=== PATIENT | female | born 1935 | race Caucasian/White ===

== ENCOUNTER 2017-12-26 19:47 | Inpatient (IN) | payer MEDICARE, MEDICAID ==
[~2017-12-26] VITALS: Ht 165.1 cm; Wt 41.4 kg
--- NOTE | 2017-12-26 20:29 | PHYS DOC ---
Past History Past Medical History: Anxiety, Arthritis, COPD, Hypertension Additional Past Medical Histor: bladder incontinence Past Surgical History: Hip Replacement (left repair) Additional Past Surgical Histo: hernia x 3 Smoking: Cigarettes, Greater than 1 pack/day Alcohol Use: None Drug Use: None Adult General Chief Complaint Chief Complaint: CHEST PAIN HPI HPI Patient is an 82-year-old female who presents to the emergency department complaining of chest pain. She states that she moved in with her sister yesterday and in the process some of her medication was lost, which included Xanax and Soma. She states that she did not want to move in with her sister. Patient states that this chest pain started yesterday. She rates the pain as 4/ 10. She denies anything that improves/worsens the pain. She says that earlier this week she fell and that her left hip is now sore. Reports history of prior fracture requiring repair. She denies hitting her head and denies any loss of consciousness. Denies leg swelling or calf tenderness. Reports cardiac risk factors of HTN, smoking, and family history. Review of Systems Review of Systems Constitutional: Denies fever or chills [] Eyes: Denies change in visual acuity, redness, or eye pain [] HENT: Denies nasal congestion or sore throat [] Respiratory: Denies cough or shortness of breath [] Cardiovascular: Complains of chest pain and denies palpitations [] GI: Denies abdominal pain, nausea, vomiting, or diarrhea [] Musculoskeletal: Complains of left-sided hip pain. Denies back pain or joint pain [] Neurologic: Denies headache, focal weakness or sensory changes [] Complete systems were reviewed and found to be within normal limits, except as documented in this note. Current Medications Current Medications Current Medications Medications (Trade) Dose Ordered Sig/[facility] Start Time Stop Time Status Last Admin Dose Admin Aspirin (Children'S Aspirin) 324 mg 1X ONCE 12/26/17 20:15 12/26/17 20:16 UNV Physical Exam Physical Exam Constitutional: Well developed, well nourished, no acute distress, non-toxic appearance. [] HENT: Normocephalic, atraumatic, oropharynx moist Eyes: PERRL, EOMI. [] Neck: Normal range of motion, no tenderness, supple, no stridor. [] Cardiovascular: Heart rate regular rhythm, no murmur [] Lungs & Thorax: Bilateral breath sounds clear to auscultation [] Abdomen: Soft, no tenderness, Skin: Warm, dry, no rash Extremities: No tenderness, no cyanosis, ROM intact, No deformity, Pelvis stable and nontender Neurologic: Alert and oriented X 3, normal motor function, normal sensory function, no focal deficits noted. [] Psychologic: Affect normal, judgement normal, mood normal. [] EKG EKG NSR at 74 bpm, No ST elevation, PVC noted, Taken at 1959 at 12/26/17 Radiology/Procedures Radiology/Procedures CXR 2 view: Preliminary Interpretation by ED physician: No acute process, hyperexpansion of lungs Left hip XR: Preliminary Interpretation by ED physician: No acute process. Femoral kyaw with hip retention screw noted, no fracture/dislocation appreciated. Course & Med Decision Making Course & Med Decision Making Pertinent Labs and Imaging studies reviewed. (See chart for details) Patient is an 82-year-old female with significant cardiac risk factors presents to the emergency department complaining of chest pain. Aspirin was given. Labs obtained and posted to chart. Initial troponin within normal limits. Chest x- ray without acute process. Patient also received x-ray of left hip without acute fracture or dislocation. Patient requiring admission for further evaluation and treatment. Discussed with Dr. Jha (hospitalist) who is in agreement with admission. Discussed findings and plan with patient and family, who acknowledge understanding and agreement. Dragon Disclaimer Dragon Disclaimer This electronic medical record was generated, in whole or in part, using a voice recognition dictation system. Departure Departure: Impression: Primary Impression: Chest pain Disposition: ADMITTED INPATIENT (telemetry) Admitting Physician: Orion Jha Condition: STABLE Problem Qualifiers Primary Impression: Chest pain Chest pain type: unspecified Qualified Codes: R07.9 - Chest pain, unspecified DONOVAN ALVAREZ DO Dec 26, 2017 20:29
[2017-12-26] MEDS ORDERED: ASPIRIN 81 MG TAB.CHEW PO ONE (20:30)
[2017-12-26] MEDS ORDERED: ALBU8.5H8 INH (20:55)
[2017-12-26] MEDS ORDERED: ALPR0.5T PO (20:55)
[2017-12-26] MEDS ORDERED: TAMS0.4C97 PO (20:55)
[2017-12-26] MEDS ORDERED: CARI350T PO (20:55)
[2017-12-26] MEDS ORDERED: TRAZ-85 PO (20:55)
[2017-12-26 20:59] LABS: BASO # 0.1 x10^3/uL (0.0-0.2); BASO % 1 % (0-3); EOS # 0.1 x10^3/uL (0.0-0.7); EOS % 2 % (0-3); LYMPH # 1.6 x10^3/uL (1.0-4.8); LYMPH % 25 % (24-48); MEAN CORPUSCULAR HEMOGLOBIN 30 pg (25-35); MEAN CORPUSCULAR HGB CONC 34 g/dL (31-37); MEAN CORPUSCULAR VOLUME 89 fL (79-100); MONO # 0.5 x10^3/uL (0.0-1.1); MONO % 8 % (0-9); NEUT # 4.2 x10^3uL (1.8-7.7); NEUT % 64 % (31-73); PLATELET COUNT 287 x10^3/uL (140-400); RED BLOOD COUNT 4.29 x10^6/uL (3.50-5.40); RED CELL DISTRIBUTION WIDTH 14.5 % (11.5-14.5); WHITE BLOOD COUNT 6.6 x10^3/uL (4.0-11.0)
[2017-12-26 21:30] LABS: BACTERIA,URINE 0 /HPF (0-FEW); BILIRUBIN,URINE NEG (NEG); CLARITY,URINE CLEAR; COLOR,URINE YELLOW; GLUCOSE,URINE NEG (NEG); NITRITE,URINE NEG (NEG); RBC,URINE OCC /HPF (0-2); SQUAMOUS EPITHELIAL CELL,UR MOD /LPF; UROBILINOGEN,URINE 0.2 mg/dL (0.2 mg/dL)
[2017-12-26 21:56] LABS: ALBUMIN 3.6 g/dL (3.4-5.0); ALBUMIN/GLOBULIN RATIO 1.3 (1.0-1.7); CALCIUM 8.7 mg/dL (8.5-10.1); CREATININE 0.9 mg/dL (0.6-1.0); GFR 59.8; MAGNESIUM 1.9 mg/dL (1.8-2.4); POTASSIUM 3.4 mmol/L (3.5-5.1); TOTAL BILIRUBIN 0.3 mg/dL (0.2-1.0); TOTAL PROTEIN 6.4 g/dL (6.4-8.2)
[2017-12-26] MEDS ORDERED: ONDANSETRON PF 4 MG/2 ML VIAL. IV PRN (22:15)
[2017-12-26 23:50] VITALS: BP 201/81
[2017-12-27 00:07] VITALS: BP 200/93
[2017-12-27] MEDS: METOPROLOL TART IMMED RELEASE 25 MG TABLET PO SCH ×2 (00:21→08:09)
[2017-12-27 03:11] VITALS: BP 169/69
[2017-12-27 05:47] VITALS: BP 164/79
--- NOTE | 2017-12-27 07:56 | RAD ---
Chest, PA and Lateral: Technique: PA and lateral views of the chest were obtained. History: Chest pain. Comparison: 03/23/2007. Findings: The heart and pulmonary vasculature appear within normal limits. Hyperinflated lungs likely changes of COPD.. The pleural margins are clear. Impression: 1. Hyperinflated lungs likely changes of COPD.. Electronically signed by: Duy Spence MD (12/27/2017 7:52 AM) [facility]
[2017-12-27] MEDS ORDERED: POTASSIUM CHLORIDE 20 MEQ TABLET.ER. PO ONE (08:00)
[2017-12-27 10:53] VITALS: BP 161/76
--- NOTE | 2017-12-27 11:12 | HP ---
ADMIT DATE: 12/26/2017 HISTORY OF PRESENT ILLNESS: The patient is an 82-year-old female patient who was brought yesterday to the Emergency Room by her sister complaining of chest pain. She apparently was evicted from a high rising building because she continues to smoke against the rules and her last day was 12/23/2017. According to her, she moved with her sister and in the process lost some of her medication, including Xanax and Soma. She apparently developed chest pain that is retrosternal, rated about 4/10 in severity. She denied any nausea or vomiting. Denied any diaphoresis, denied any shortness of breath or radiation to her left arm or left shoulder. She stated that she fell about earlier this week and her left hip is now sore. Apparently, she has had a history of fracture before that was treated surgically. She denied any previous heart attack or a stress test, although her sister later on came and said that she follows with the [facility] Cardiology team and see Dr. Vesna Pa and Dr. Edwards. She was extensively investigated in the Emergency Room. Her EKG showed that she was in sinus rhythm at a rate of 74 beats per minute with no ST segment elevation or depression. Chest x-ray showed inflated lungs without any infiltrate, pleural effusion, or pneumothorax. Her first set of cardiac enzyme showed troponin to be less than 0.017. She was admitted to do 2 more sets of cardiac enzymes, check her fasting lipid profile, and consult the Cardiology team. PAST MEDICAL HISTORY: Unremarkable. According to her, she sees and we attempting to get some more information from his office. She gets her medication from [facility]. PAST SURGICAL HISTORY: Significant for cataract extraction and three hernia repair. According to her sister, she has multiple bowel surgeries and she always has chronic constipation. ALLERGIES: She has no known drug allergies. MEDICATIONS: She is on albuterol sulfate for ProAir 2 puffs every 6 hours, Soma 350 mg daily, trazodone 50 mg at bedtime, and alprazolam 0.5 mg twice a day. She is also on Flomax 0.4 mg daily. FAMILY HISTORY: She has 3 brothers and 3 sisters, all younger. Her mother at age of 85 because of the CVA. Her father in his 80s, the cause of her is unknown to her. SOCIAL HISTORY: She is , has 2 daughters and 1 son, all live in [place]. She used to live on her own at an apartment from which she was evicted recently. She continues to smoke a pack a day, does not drink alcohol or recreational drugs. 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 REVIEW OF SYSTEMS: The patient had bilateral cataract extraction, but denied any glaucoma or macular degeneration. Denied that she is deaf in her left ear. Denied any nosebleeds, stuffy nose, or postnasal drip. Denied any sore throat, sore tongue, difficulty swallowing. Denied any nausea, vomiting, diarrhea, or constipation. Denied any hematemesis, melena, or hematochezia. Denied any dysuria, frequency, or hematuria. Did complain of chest pain and shortness of breath, but denied any orthopnea or paroxysmal nocturnal dyspnea. Denied any cough, phlegm, or hemoptysis. Denied any chills, rigors, or fever. PHYSICAL EXAMINATION: GENERAL: On arrival to the Emergency Room, she looked well and was clearly in no apparent respiratory distress. There was no pallor, jaundice, cyanosis, or thyromegaly. No jugular venous distension. No lower limb edema. VITAL SIGNS: Her heart rate was 67, blood pressure was 190/79. Her temperature was 98.8, respiratory rate 24, and oxygen saturation was 97% on room air. HEAD, EYES, EARS, NOSE, AND THROAT: Showed she is normocephalic, atraumatic. NECK: Supple. No lymphadenopathy, no thyromegaly, no jugular venous distension, no audible bruit. HEART: Showed normal first and second sounds. No gallop, rub, or murmur. CHEST: Clear to auscultation. No crepitation or rhonchi. ABDOMEN: Scaphoid, soft, nontender. No guarding or rigidity. No organomegaly. All hernial orifices are intact. Bowel sounds normal. She has multiple scars of previous surgeries. NEUROLOGIC: She is awake, alert, very slow to respond; however, all her cranial nerves are grossly intact. EXTREMITIES: She moves extremities without difficulty, although she is extremely emaciated, in fact her body mass index is only 15.2 kilograms square meter and she weighs only 91 pounds. LABORATORY DATA: Showed a white cell count 5600, hemoglobin 13, hematocrit 38, MCV 89, and platelet count 287,000. Her chemistry showed a serum sodium 141, potassium 3.4, chloride 105, bicarbonate 27, anion gap of 9, BUN 16, creatinine 0.9, estimated GFR was 60 mL per minute. Her glucose 101, calcium was 8.7, magnesium was 1.9. Total bilirubin, AST, ALT, alkaline phosphatase were normal. Total protein was 6.4, albumin 3.6, and serum lipase 158. Her first troponin was less than 0.017. ASSESSMENT AND PLAN: The patient was admitted to do 2 more sets of cardiac enzyme, consult the Cardiology team. Her chest x-ray showed that the heart and pulmonary vasculature appears within normal limits. There are hyperinflated lungs, likely changes of chronic obstructive pulmonary disease. The pleural margins are clear. FABIAN ROTHMAN MD DR: ZEINA/nickolas JOB#: [id number] / [id number]
--- NOTE | 2017-12-27 12:01 | PN ---
DATE: 12/27/2017 SUBJECTIVE: The patient is resting slightly propped up in bed, no apparent distress. She is awake, alert. On questioning her, denied any further episode of chest pain. Denied any shortness of breath, cough, phlegm, or hemoptysis. She has had 2 more sets of cardiac enzymes that were negative. Her sister said that she has been very secretive about her medical problems and stated that she has been following [facility] Cardiology Team, was followed closely by as per her sister. PHYSICAL EXAMINATION: GENERAL: When I examined her this morning, she looked well and was clearly in no apparent respiratory distress. No pallor, jaundice, cyanosis, or thyromegaly. No jugular venous distension. No lower limb edema. VITAL SIGNS: Her heart rate was 59, blood pressure 164/79, temperature was 98.5, respiratory rate was 16, and oxygen saturation was 96%. HEAD, EYES, EARS, NOSE AND THROAT: Normocephalic, atraumatic. NECK: Supple. HEART: Showed normal first and second heart sounds with no gallop, rub or murmur. CHEST: Clear to auscultation. No crepitation or rhonchi. ABDOMEN: Distended, soft, nontender. No guarding or rigidity. No organomegaly. All hernial orifice intact. Bowel sounds normal. NEUROLOGIC: She is awake, alert, responding appropriately at times, although sometimes very slow to respond. All her cranial nerves are grossly intact. She moves her extremities without difficulty, though she is extremely emaciated associated with marked muscle wasting and weakness. Her body mass index only 15.2 kilograms square meter. LABORATORY DATA: Her lab work showed that she has 2 more sets of cardiac enzymes that showed troponin to be less than 0.017. PLAN: My plan is obviously to await the evaluation by the Cardiology Team and also will consult Dr. Tapia and her sister is concerned that she might also have dementia and might require placement as she was evicted from her apartment. FABIAN ROTHMAN MD DR: ZEINA/nickolas JOB#: [id number] / [id number]
--- NOTE | 2017-12-27 13:56 | PDOC2 ---
CONSULT Date of Admission DATE: 12/27/17 TIME: 13:55 Reason for Consult: Chest pain Referring Physician: Dr. Jha Chief Complaint Chest pain Source: Chart review, Patient History of Present Illness 82-year-old female presented with retrosternal chest tightness not related to exertion or food intake. She denied any associated shortness of breath, palpitations or syncope. She was apparently evicted from a high rise building recently since she continued to smoke against the rules and has been under stress. She was seen by cardiology in the past for near syncope the patient denied any definite diagnosis of coronary artery disease or cardiac arrhythmia. Past Medical History Hypertension COPD Past Surgical History Cataract extraction Hernia repair Multiple bowel surgeries Family History not contributory Social History Patient continues to smoke one pack of cigarettes daily but denied any alcohol or drug use Current Medications Current Medications Aspirin (Children'S Aspirin) 324 mg 1X ONCE PO Last administered on 12/26/17at 20:31; Start 12/26/17 at 20:30; Stop 12/26/17 at 20:31; Status DC Ondansetron HCl (Zofran) 4 mg PRN Q8HRS PRN IV NAUSEA/VOMITING; Start 12/26/17 at 22:15 Metoprolol Tartrate (Lopressor) 25 mg BID PO Last administered on 12/27/17at 08: 09; Start 12/27/17 at 00:30 Potassium Chloride (Klor-Con) 40 meq 1X ONCE PO Last administered on 12/27/17at 08:09; Start 12/27/17 at 08:00; Stop 12/27/17 at 08:01; Status DC Nicotine (Nicoderm Cq 21mg) 1 patch DAILY TD ; Start 12/27/17 at 14:00 Active Scripts Active Reported Proair Hfa Inhaler (Albuterol Sulfate) 8.5 Gm Hfa.aer.ad 2 Puff INH PRN Q6HRS PRN Trazodone Hcl 50 Mg Tablet 50 Mg PO QHS Flomax (Tamsulosin Hcl) 0.4 Mg Cap.er.24h 0.4 Mg PO DAILY Soma (Carisoprodol) 350 Mg Tablet 350 Mg PO DAILY Xanax (Alprazolam) 0.5 Mg Tablet 0.5 Mg PO BID PRN Allergies: Coded Allergies: No Known Drug Allergies (Unverified , 12/26/17) PSYCHOLOGICAL ROS: No: Hallucinations Eyes: No: Loss of vision HEENT: No: Epistaxis Respiratory: No: Hemoptysis, Shortness of breath Cardiovascular: yes: Chest Pain Gastrointestinal: No: Vomiting, Diarrhea Genitourinary: No: Henaturia Neurological: No: Seizures Skin: No: Rash General: Alert, No acute distress HEENT: Atraumatic, PERRLA Lungs: Clear to auscultation Heart: Regular rate Abdomen: Soft Extremities: No edema Psych/Mental Status: Mood NL VITALS Vital Signs Date Time Temp Pulse Resp B/P (MAP) Pulse Ox O2 Delivery O2 Flow Rate FiO2 12/27/17 10:53 98.2 52 16 161/76 (104) 96 Room Air Labs Laboratory Tests Test 12/26/17 19:50 12/26/17 20:10 12/26/17 23:15 12/27/17 05:05 Urine Collection Type Unknown Urine Color Yellow Urine Clarity Clear Urine pH 7.0 Urine Specific Harrison 1.010 Urine Protein Neg (NEG-TRACE) Urine Glucose (UA) Neg mg/dL (NEG) Urine Ketones (Stick) Neg mg/dL (NEG) Urine Blood Trace (NEG) Urine Nitrite Neg (NEG) Urine Bilirubin Neg (NEG) Urine Urobilinogen Dipstick 0.2 mg/dL (0.2 mg/dL) Urine Leukocyte Esterase Neg (NEG) Urine RBC Occ /HPF (0-2) Urine WBC 1-4 /HPF (0-4) Urine Squamous Epithelial Cells Mod /LPF Urine Bacteria 0 /HPF (0-FEW) White Blood Count 6.6 x10^3/uL (4.0-11.0) Red Blood Count 4.29 x10^6/uL (3.50-5.40) Hemoglobin 13.0 g/dL (12.0-15.5) Hematocrit 38.0 % (36.0-47.0) Mean Corpuscular Volume 89 fL (79-100) Mean Corpuscular Hemoglobin 30 pg (25-35) Mean Corpuscular Hemoglobin Concent 34 g/dL (31-37) Red Cell Distribution Width 14.5 % (11.5-14.5) Platelet Count 287 x10^3/uL (140-400) Neutrophils (%) (Auto) 64 % (31-73) Lymphocytes (%) (Auto) 25 % (24-48) Monocytes (%) (Auto) 8 % (0-9) Eosinophils (%) (Auto) 2 % (0-3) Basophils (%) (Auto) 1 % (0-3) Neutrophils # (Auto) 4.2 x10^3uL (1.8-7.7) Lymphocytes # (Auto) 1.6 x10^3/uL (1.0-4.8) Monocytes # (Auto) 0.5 x10^3/uL (0.0-1.1) Eosinophils # (Auto) 0.1 x10^3/uL (0.0-0.7) Basophils # (Auto) 0.1 x10^3/uL (0.0-0.2) Prothrombin Time 10.5 SEC (9.4-11.4) Prothromb Time International Ratio 1.0 (0.9-1.1) Activated Partial Thromboplast Time 25 SEC (23-33) Sodium Level 141 mmol/L (136-145) Potassium Level 3.4 mmol/L (3.5-5.1) Chloride Level 105 mmol/L (98-107) Carbon Dioxide Level 27 mmol/L (21-32) Anion Gap 9 (6-14) Blood Urea Nitrogen 16 mg/dL (7-20) Creatinine 0.9 mg/dL (0.6-1.0) Estimated GFR (Cockcroft-Gault) 59.8 BUN/Creatinine Ratio 18 (6-20) Glucose Level 101 mg/dL (70-99) Calcium Level 8.7 mg/dL (8.5-10.1) Magnesium Level 1.9 mg/dL (1.8-2.4) Total Bilirubin 0.3 mg/dL (0.2-1.0) Aspartate Amino Transf (AST/SGOT) 35 U/L (15-37) Alanine Aminotransferase (ALT/SGPT) 26 U/L (14-59) Alkaline Phosphatase 77 U/L (46-116) Creatine Kinase 778 U/L (26-192) Creatine Kinase MB (Mass) 4.3 ng/mL (0.0-3.6) Creatine Kinase MB Relative Index 0.6 % (0-4) Troponin I Quantitative < 0.017 ng/mL (0-0.055) < 0.017 ng/mL (0-0.055) < 0.017 ng/mL (0-0.055) MZ-Nzo-N-Type Natriuretic Peptide 196 pg/mL (0-449) Total Protein 6.4 g/dL (6.4-8.2) Albumin 3.6 g/dL (3.4-5.0) Albumin/Globulin Ratio 1.3 (1.0-1.7) Lipase 158 U/L (73-393) Assessment/Plan 1. Chest pain with atypical features: Myocardial infarction been ruled out. Plan for 2-D echo and Lexiscan nuclear stress test as an outpatient since patient would like to be discharged today. 2. COPD: Stable 3. Tobacco abuse: Advised smoking cessation Thank you for your consultation DANITZA SEXTON MD Dec 27, 2017 13:56
[2017-12-27] MEDS ORDERED: NICOTINE 21MG PATCH. TD SCH (14:00)
--- NOTE | 2017-12-27 19:34 | EKG ---
[address] [address] Test Date: 2017-12-26 Test Time: 19:59:35 Pat Name: ML CRUZ Department: Room: Gender: F [employer] Architect: : [id number] Requested By: DONOVAN ALVAREZ Order Number: [id number] Reading MD: Measurements Intervals [place] Rate: 74 P: 90 IA: 154 QRS: 63 QRSD: 78 T: 77 QT: 424 QTc: 471 Interpretive Statements SINUS RHYTHM VENTRICULAR PREMATURE COMPLEX(ES) ATRIAL PREMATURE COMPLEX(ES) QRS(T) CONTOUR ABNORMALITY CONSIDER ANTEROLATERAL MYOCARDIAL DAMAGE PROLONGED QT ABNORMAL ECG RI6.01 Unconfirmed report No previous ECG available for comparison
--- NOTE | 2017-12-27 21:34 | RAD ---
Left hip 2 views with one view pelvis. HISTORY: Pain history of fall, history left hip fracture Pelvis Single view of the pelvis shows mild degenerative disc disease in the lower lumbar spine. Pelvis appears intact without fracture. Right hip is unremarkable. AP and lateral views were taken of the left hip. There is a short intramedullary kyaw in the left femur in good position. There is a hip nail through the kyaw to the femoral head in good position. The kyaw is held in place by a single screw through the femur. An acute fracture is not identified. IMPRESSION: 1. Old healed left hip fracture. 2. Intramedullary kyaw and hip nail remaining good position. 3. No acute pelvic fracture. Electronically signed by: Pj Hodges MD (12/27/2017 9:30 PM) [facility]
== END 2017-12-27 14:33 | disposition left against medical advice (07) | DRG 313 ==
LOC: ER 19:47 → 1 SOUTH 22:24
PROVIDERS: ADMIT Internal Medicine; ATTEND Internal Medicine
DX: R07.89 Other chest pain (principal); I10 Essential (primary) hypertension; J44.9 Chronic obstructive pulmonary disease, unspecified; F41.9 Anxiety disorder, unspecified; M19.90 Unspecified osteoarthritis, unspecified site; Z96.642 Presence of left artificial hip joint; F17.210 Nicotine dependence, cigarettes, uncomplicated; Z53.21 Procedure and treatment not carried out due to patient leaving prior to being seen by health care provider; Z98.49 Cataract extraction status, unspecified eye; Z82.3 Family history of stroke; Z79.899 Other long term (current) drug therapy; Z71.6 Tobacco abuse counseling
CPT/HCPCS: 36415; 71046; 73502; 80053; 81001; 82553; 83690; 83735; 83880; 84484; 85025; 85610; 85730; 93005; 99285-25

== ENCOUNTER 2018-03-15 12:32 | Emergency (ER) | payer MEDICARE, MEDICAID ==
[~2018-03-15] VITALS: Ht 165.1 cm; Wt 41.0 kg
[~2018-03-15 12:32] MED LIST: ALBU8.5H8 INH; ALPR0.5T PO; CARI350T PO; TAMS0.4C97 PO; TRAZ-85 PO
[2018-03-15 13:09] VITALS: BP 145/50
--- NOTE | 2018-03-15 13:17 | EKG ---
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
--- NOTE | 2018-03-15 13:28 | RAD ---
CHEST PA LATERAL, CT HEAD WO CONTRAST dated 03/15/2018 1:10 PM Indication:WEAKNESS Comparison: No comparison is available. Technique: Noncontrast images were performed. One or more of the following individualized dose reduction techniques were utilized for this examination: 1. Automated exposure control 2. Adjustment of the mA and/or kV according to patient size 3. Use of iterative reconstruction technique Findings: No hemorrhage or abnormal extra-axial fluid collection is seen. No focal area of abnormal density is identified in the brain. The ventricles and basilar cisterns are normally positioned. The ventricles are prominent in size, even for the patient's age, and seen disproportionately large compared to the degree of gyral atrophy. No obstructing mass is seen, however. The paranasal sinuses and mastoid air cells appear clear. IMPRESSION: No evidence of hemorrhage or acute infarct. There is prominence of the size of the ventricles without identified obstructing mass. Findings raise the possibility of normal pressure hydrocephalus. Chest PA and lateral 03/15/2018. Reason for exam: Weakness. Comparison is made with a study of 12/26/2017. No new infiltrate or effusion is seen. Heart size and pulmonary vascularity appear normal. IMPRESSION: No acute findings. Electronically signed by: Yair Irwin Jr., MD (03/15/2018 1:25 PM) [facility]
[2018-03-15 14:05] LABS: BASO # 0.1 x10^3/uL (0.0-0.2); BASO % 1 % (0-3); EOS # 0.2 x10^3/uL (0.0-0.7); EOS % 3 % (0-3); HEMATOCRIT 37.8 % (36.0-47.0); LYMPH # 1.2 x10^3/uL (1.0-4.8); LYMPH % 18 % (24-48); MEAN CORPUSCULAR HEMOGLOBIN 31 pg (25-35); MEAN CORPUSCULAR HGB CONC 34 g/dL (31-37); MEAN CORPUSCULAR VOLUME 89 fL (79-100); MONO # 0.5 x10^3/uL (0.0-1.1); MONO % 7 % (0-9); NEUT # 4.9 x10^3uL (1.8-7.7); NEUT % 71 % (31-73); PLATELET COUNT 297 x10^3/uL (140-400); RED BLOOD COUNT 4.23 x10^6/uL (3.50-5.40); WHITE BLOOD COUNT 6.8 x10^3/uL (4.0-11.0)
[2018-03-15 14:11] LABS: BACTERIA,URINE 0 /HPF (0-FEW); BILIRUBIN,URINE NEG (NEG); CLARITY,URINE CLEAR; COLOR,URINE YELLOW; GLUCOSE,URINE NEG (NEG); HYALINE CASTS, URINE OCC /HPF; NITRITE,URINE NEG (NEG); RBC,URINE 0 /HPF (0-2); SQUAMOUS EPITHELIAL CELL,UR FEW /LPF; UROBILINOGEN,URINE 0.2 mg/dL (0.2 mg/dL); WBC,URINE 0 /HPF (0-4)
--- NOTE | 2018-03-15 14:14 | PHYS DOC ---
Past History Past Medical History: Dementia, Other Additional Past Medical Histor: bladder incontinence Past Surgical History: No Surgical History Additional Past Surgical Histo: hernia x 3 Smoking: Cigarettes, Greater than 1 pack/day Alcohol Use: None Drug Use: None Adult General Chief Complaint Chief Complaint: FATIGUE [facility] Patient is a 82 year old female who brought in by her sister because of one episode of leaning to the left site that started about 30 minutes prior to arrival and resolved now. Patient denies any problem but her sister states she had a short episodes of leaning to left side without loss of consciousness or confusion more than her usual confusion. Patient had 243 mg of aspirin prior to arrival to ER. Patient moved to her sister home 2 months ago and his sister is not sure about her medical problem. Review of Systems Review of Systems Constitutional: Denies fever or chills [] Eyes: Denies change in visual acuity, redness, or eye pain [] HENT: Denies nasal congestion or sore throat [] Respiratory: Denies cough or shortness of breath [] Cardiovascular: No additional information not addressed in HPI [] GI: Denies abdominal pain, nausea, vomiting, bloody stools or diarrhea [] : Denies dysuria or hematuria [] Musculoskeletal: Denies back pain or joint pain [] Integument: Denies rash or skin lesions [] Neurologic: Denies headache, focal weakness or sensory changes [] Endocrine: Denies polyuria or polydipsia [] All other systems were reviewed and found to be within normal limits, except as documented in this note. Allergies Allergies Allergies Coded Allergies Type Severity Reaction Last Updated Verified No Known Drug Allergies 12/26/17 No Physical Exam Physical Exam Constitutional: Well developed, well nourished, no acute distress, non-toxic appearance. [] HENT: Normocephalic, atraumatic, bilateral external ears normal, oropharynx moist, no oral exudates, nose normal. [] Eyes: PERRLA, EOMI, conjunctiva normal, no discharge. [] Neck: Normal range of motion, no tenderness, supple, no stridor. [] Cardiovascular:Heart rate regular rhythm, no murmur [] Lungs & Thorax: Bilateral breath sounds clear to auscultation [] Abdomen: Bowel sounds normal, soft, no tenderness, no masses, no pulsatile masses. [] Skin: Warm, dry, no erythema, no rash. [] Back: No tenderness, no CVA tenderness. [] Extremities: No tenderness, no cyanosis, no clubbing, ROM intact, no edema. [] Neurologic: Alert and oriented X 3, normal motor function, normal sensory function, no focal deficits noted. [] Psychologic: Affect normal, judgement normal, mood normal. [] Current Patient Data Vital Signs Vital Signs Date Time Temp Pulse Resp B/P (MAP) Pulse Ox O2 Delivery O2 Flow Rate FiO2 03/15/18 13:09 98.0 70 16 98 Room Air EKG EKG EKG interpreted by me. EKG at 1254 showed normal sinus rhythm at rate of 66, poor R-wave progress in anteroseptal leads, no acute ST and T-wave abnormalities Radiology/Procedures Radiology/Procedures [address] [address] IMAGING REPORT Signed PATIENT: ML CRUZ ACCOUNT: [id number] : 1935 LOCATION: ER AGE: 82 SEX: F EXAM STATUS: PRE ER ORD. PHYSICIAN: LUIS DE LEÓN MD REASON: weakness PROCEDURE: CHEST PA & LATERAL CHEST PA LATERAL, CT HEAD WO CONTRAST dated 03/15/2018 1:10 PM Indication:WEAKNESS Comparison: No comparison is available. Technique: Noncontrast images were performed. One or more of the following individualized dose reduction techniques were utilized for this examination: 1. Automated exposure control 2. Adjustment of the mA and/or kV according to patient size 3. Use of iterative reconstruction technique Findings: No hemorrhage or abnormal extra-axial fluid collection is seen. No focal area of abnormal density is identified in the brain. The ventricles and basilar cisterns are normally positioned. The ventricles are prominent in size, even for the patient's age, and seen disproportionately large compared to the degree of gyral atrophy. No obstructing mass is seen, however. The paranasal sinuses and mastoid air cells appear clear. IMPRESSION: No evidence of hemorrhage or acute infarct. There is prominence of the size of the ventricles without identified obstructing mass. Findings raise the possibility of normal pressure hydrocephalus. Chest PA and lateral 03/15/2018. Reason for exam: Weakness. Comparison is made with a study of 12/26/2017. No new infiltrate or effusion is seen. Heart size and pulmonary vascularity appear normal. IMPRESSION: No acute findings. Electronically signed by: Yair Irwin Jr., MD (03/15/2018 1:25 PM) [facility] [place] Course & Med Decision Making Course & Med Decision Making Pertinent Labs and Imaging studies reviewed. (See chart for details) Evaluation of patient in ER showed 82-year-old female patient brought in by her sister because of one episode of leaning to left melendez. Patient had unremarkable physical exam and labs and CT of head except for mild renal test abnormality that according to her sister was chronic. Patient ambulated without any problem and wanted to go home. Patient instructed to follow-up with his primary care physician Rikki Disclaimer Rikki Disclaimer This electronic medical record was generated, in whole or in part, using a voice recognition dictation system. Departure Departure: Impression: Primary Impression: Weakness Additional Impressions: TIA (transient ischemic attack) Renal insufficiency Disposition: HOME, SELF-CARE (at 1427) Condition: IMPROVED Referrals: GALLITO BENSON MD (PCP) Patient Instructions: Chronic Renal Insufficiency, Transient Ischemic Attack Additional Instructions: Drink plenty of liquids Follow-up with your primary care physician in 3-5 days Return to ER if not getting better Problem Qualifiers LUIS DE LEÓN MD Mar 15, 2018 14:14
[2018-03-15 14:22] LABS: ALBUMIN 3.7 g/dL (3.4-5.0); ALBUMIN/GLOBULIN RATIO 1.2 (1.0-1.7); CALCIUM 8.6 mg/dL (8.5-10.1); CREATININE 1.3 mg/dL (0.6-1.0); GFR 39.1; MAGNESIUM 2.1 mg/dL (1.8-2.4); TOTAL BILIRUBIN 0.2 mg/dL (0.2-1.0); TOTAL PROTEIN 6.8 g/dL (6.4-8.2)
== END 2018-03-15 14:46 | disposition home or self-care (01) ==
LOC: ER 12:32
DX: G45.9 Transient cerebral ischemic attack, unspecified (principal); R53.1 Weakness; N28.9 Disorder of kidney and ureter, unspecified; F17.210 Nicotine dependence, cigarettes, uncomplicated
CPT/HCPCS: 36415; 70450; 71046; 80053; 81001; 82550; 83690; 83735; 83880; 84484; 85025; 85610; 93005; 99285; P9612

== ENCOUNTER 2018-12-02 09:21 | Inpatient (IN) | payer MEDICARE, OTHER ==
[~2018-12-02] VITALS: Ht 165.1 cm; Wt 50.4 kg
[~2018-12-02 09:21] MED LIST changes: +ALBU2.5V8 INH; -ALBU8.5H8 INH; +TRAZ-120 PO; -TRAZ-85 PO
[2018-12-02 09:42] LABS: BASO # 0.1 x10^3/uL (0.0-0.2); BASO % 1 % (0-3); EOS % 0 % (0-3); HEMATOCRIT 40.4 % (36.0-47.0); LYMPH # 0.4 x10^3/uL (1.0-4.8); LYMPH % 3 % (24-48); MEAN CORPUSCULAR HEMOGLOBIN 29 pg (25-35); MEAN CORPUSCULAR HGB CONC 32 g/dL (31-37); MEAN CORPUSCULAR VOLUME 90 fL (79-100); MONO # 0.9 x10^3/uL (0.0-1.1); MONO % 6 % (0-9); NEUT % 90 % (31-73); PLATELET COUNT 292 x10^3/uL (140-400); RED BLOOD COUNT 4.52 x10^6/uL (3.50-5.40); RED CELL DISTRIBUTION WIDTH 14.9 % (11.5-14.5); WHITE BLOOD COUNT 13.4 x10^3/uL (4.0-11.0)
--- NOTE | 2018-12-02 09:51 | PHYS DOC ---
Past History Past Medical History: Dementia, Other Additional Past Medical Histor: bladder incontinence Past Surgical History: No Surgical History Additional Past Surgical Histo: hernia x 3 Smoking: Cigarettes, Greater than 1 pack/day Alcohol Use: None Drug Use: None Adult General Chief Complaint Chief Complaint: ALTERED MENTAL STATUS [facility] HPI Patient is an 83-year-old female who presents via EMS with report of altered mental status. Patient is resident at [facility] and reportedly has had significant decrease in level of consciousness. Patient is normally noncommunicative but staff of [facility] indicates that patient's level of consciousness has been decreased and medics report that blood pressure was quite low in the 80s systolic. Additional history is difficult to obtain as patient is nonverbal[] Review of Systems Review of Systems Constitutional: No report of fever or chills [] Respiratory: Positive cough reported[] Cardiovascular: No additional information not addressed in HPI [] GI: No report of vomiting or diarrhea [] Neurologic: Positive reported mental status changes [] Unable to fully assess review of systems due to mental state and nonverbal state. Allergies Allergies Allergies Coded Allergies Type Severity Reaction Last Updated Verified No Known Drug Allergies 12/26/17 No Physical Exam Physical Exam Constitutional: Awake but nonverbal in no apparent distress, non-toxic appearance. [] HENT: Normocephalic, atraumatic, bilateral external ears normal, oropharynx dry, no oral exudates, nose normal. [] Eyes: PERRLA, EOMI, conjunctiva normal, no discharge. [] Neck: Normal range of motion, no tenderness, supple, no stridor. [] Cardiovascular: Mildly tachycardic rate with regular rhythm[] Lungs & Thorax: Coarse rhonchi are noted bilaterally to auscultation [] Abdomen: Bowel sounds normal, soft, no tenderness. [] Skin: Warm, dry, no erythema, no rash. [] Extremities: No tenderness, no cyanosis, no clubbing, ROM intact. [] Neurologic: Alert and oriented X 3, no focal deficits noted. [] EKG EKG EKG demonstrates sinus tachycardia with rate of 104.[] Radiology/Procedures Radiology/Procedures [] Impressions: PROCEDURE: PORTABLE CHEST 1V AP portable chest radiograph 12/02/2018 Clinical History: Weakness. An AP erect portable digital radiograph of the chest was obtained. Comparison study is dated 03/15/2018. The cardiac silhouette is borderline enlarged. Atherosclerotic calcification of the thoracic aorta is seen. The thoracic aorta is mildly tortuous. Prominence of the pulmonary vasculature is noted. Patchy right lower lobe atelectasis and/or infiltrate is seen. No pneumothorax or pleural effusion is noted. There is diffuse osteopenia of the visualized bony structures. Degenerative changes are seen involving the thoracic spine. IMPRESSION:Patchy right lower lobe atelectasis and/or infiltrate. Electronically signed by: Erwin Chamorro MD (12/02/2018 9:58 AM) [place] [id number] Course & Med Decision Making Course & Med Decision Making Pertinent Labs and Imaging studies reviewed. (See chart for details) [] Dragon Disclaimer Dragon Disclaimer This electronic medical record was generated, in whole or in part, using a voice recognition dictation system. Departure Departure: Impression: Primary Impression: Facility-acquired pneumonia Disposition: ADMITTED INPATIENT Admitting Physician: Orion Jha Condition: IMPROVED Referrals: GALLITO BENSON MD (PCP) JOSSIE GAITAN Jr. DO Dec 02, 2018 09:51
[2018-12-02 09:59] LABS: ALBUMIN 3.1 g/dL (3.4-5.0); CALCIUM 9.1 mg/dL (8.5-10.1); CREATININE 1.5 mg/dL (0.6-1.0); GFR 33.1; MAGNESIUM 1.8 mg/dL (1.8-2.4); POTASSIUM 3.9 mmol/L (3.5-5.1); TOTAL BILIRUBIN 0.6 mg/dL (0.2-1.0); TOTAL PROTEIN 6.3 g/dL (6.4-8.2)
--- NOTE | 2018-12-02 10:02 | RAD ---
AP portable chest radiograph 12/02/2018 Clinical History: Weakness. An AP erect portable digital radiograph of the chest was obtained. Comparison study is dated 03/15/2018. The cardiac silhouette is borderline enlarged. Atherosclerotic calcification of the thoracic aorta is seen. The thoracic aorta is mildly tortuous. Prominence of the pulmonary vasculature is noted. Patchy right lower lobe atelectasis and/or infiltrate is seen. No pneumothorax or pleural effusion is noted. There is diffuse osteopenia of the visualized bony structures. Degenerative changes are seen involving the thoracic spine. IMPRESSION:Patchy right lower lobe atelectasis and/or infiltrate. Electronically signed by: Erwin Chamorro MD (12/02/2018 9:58 AM) [place] [id number]
--- NOTE | 2018-12-02 10:04 | RAD ---
CT scan of the head without contrast 12/02/2018 Clinical History: Altered mental status. Technique: Unenhanced, contiguous, 5 mm axial sections were obtained through the head. One or more of the following individualized dose reduction techniques were utilized for this study: 1. Automated exposure control. 2. Adjustment of the mA and/or kV according to patient size. 3. Use of iterative reconstruction technique. Findings: Comparison study is dated 03/15/2018. There is generalized parenchymal atrophy. Prominence of the ventricular system is again seen, unchanged. Areas of decreased attenuation are seen within the periventricular and subcortical white matter of both cerebral hemispheres consistent with areas of small vessel ischemic disease. No acute parenchymal abnormality is seen. No extra-axial fluid collection is noted. No skull fracture is seen. Impression: No acute intracranial abnormality is seen. Electronically signed by: Erwin Chamorro MD (12/02/2018 10:01 AM) [id number]
[2018-12-02] MEDS ORDERED: MEROPENEM 1 GM in IV NORMAL SALINE 100ML 100 ML IV STA (10:27)
[2018-12-02] MEDS ORDERED: PIPERACILLIN/TAZOBACTAM 3.375 GM in IV NORMAL SALINE 50ML 50 ML IV ONE (10:30)
[2018-12-02] MEDS ORDERED: IV NORMAL SALINE 500ML 500 ML IV ONE (10:30)
[2018-12-02] MEDS ORDERED: VANCOMYCIN 1 GM in IV NORMAL SALINE 250ML 250 ML IV ONE (10:30)
[2018-12-02] MEDS ORDERED: PIPERACILLIN/TAZOBACTAM 3.375 GM VIAL IV ONE (10:31)
[2018-12-02] MEDS ORDERED: IV NORMAL SALINE 50ML 50 ML ONE (10:31)
[2018-12-02] MEDS ORDERED: MEROPENEM 1 GM VIAL IV ONE (10:35)
[2018-12-02] MEDS ORDERED: IV NORMAL SALINE 250ML 250 ML ONE (10:35)
[2018-12-02] MEDS ORDERED: IV NORMAL SALINE 100ML 100 ML ONE (10:36)
[2018-12-02] MEDS ORDERED: VANCOMYCIN 1 GM VIAL. ONE (10:36)
[2018-12-02 10:37] LABS: % BANDS 20 % (0-9); % BASOS 0 % (0-3); % EOS 0 % (0-5); % LYMPHS 4 % (24-48); % MONOS 5 % (0-10); % SEGS 71 % (35-66); PLT ESTIMATE ADEQUATE (ADEQUATE); TOXIC VACUOLATION SLIGHT
[2018-12-02] MEDS ORDERED: IV NORMAL SALINE 1,000ML 1,000 ML IV SCH (10:44)
[2018-12-02] MEDS ORDERED: ACETAMINOPHEN 325 MG TABLET PO PRN (10:45)
[2018-12-02] MEDS ORDERED: VANCOMYCIN 1.25 GM in IV NORMAL SALINE 250ML 250 ML IV ONE (10:45)
[2018-12-02] MEDS ORDERED: ONDANSETRON PF 4 MG/2 ML VIAL. IV PRN (10:45)
[2018-12-02] MEDS: IPRATRPIUM/ALBUTEROL 0.5/2.5MG 3 ML NEBU. NEB SCH ×3 (12:00→20:25)
[2018-12-02 12:20] VITALS: BP 170/75
[2018-12-02] MEDS ORDERED: VANCOMYCIN PER PHARMACY MC PRN (14:45)
[2018-12-02] MEDS ORDERED: ACETAMINOPHEN 650 MG SUPP.RECT. PR PRN (15:15)
[2018-12-02 15:22] VITALS: BP 160/60
[2018-12-02 15:48] LABS: BGAS PH 7.39 (7.35-7.45)
[2018-12-02] MEDS: MEROPENEM 500 MG in IV NORMAL SALINE 50ML 50 ML IV SCH (16:53)
[2018-12-02] MEDS ORDERED: ENOXAPARIN 30 MG/0.3 ML SYRINGE. SQ SCH (17:00)
--- NOTE | 2018-12-02 17:47 | HP ---
ADMIT DATE: 12/02/2018 HISTORY OF PRESENT ILLNESS: The patient is an 83-year-old female patient, a resident at [facility] [place], who came to the Emergency Room of [facility] by emergency medical services with report of altered mental status. The patient is a resident who reportedly has had significant decrease in level of consciousness. She is normally noncommunicative but staff at [facility] indicates that the patient's level of consciousness has been decreased and medics report that blood pressure was quite low in the 80s systolic. No additional information was obtained. The patient was nonverbal. She apparently was investigated in the Emergency Room and was found to have right lower lobe infiltrate and was admitted with diagnosis of healthcare-associated pneumonia and was started on IV vancomycin and meropenem as she has MULTIPLE ALLERGIES INCLUDING ALLERGY TO PENICILLIN. PAST MEDICAL HISTORY: Significant for chronic obstructive pulmonary disease. She has also iron deficiency anemia, recurrent falls, chronic pain syndrome, chronic maxillary sinusitis. Muscle wasting and weakness, difficulty walking, age-related cognitive decline and she did have also a fall with nondisplaced intertrochanteric fracture of the left femur. PAST SURGICAL HISTORY: Significant for bilateral cataract extraction, 3 hernia repairs. She has also multiple bowel surgeries and left intertrochanteric fracture, status post open reduction and internal fixation. ALLERGIES: SHE HAS A MULTITUDE OF ALLERGIES TO AMITRIPTYLINE, AMOXICILLIN, CLINDAMYCIN, DOXYCYCLINE, LEVOFLOXACIN, MEPERIDINE. FAMILY HISTORY: She has 3 brothers and 3 sisters, all younger. Her mother at age of 85 because of CVA. Her father in his 80s. The cause of his is unknown to her. SOCIAL HISTORY: She is . She has 2 daughters and 1 son, all live in [place]. She used to live on her own at an apartment from which she was evicted recently. She is currently a resident at [facility]. 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 REVIEW OF SYSTEMS: Unobtainable. PHYSICAL EXAMINATION: GENERAL: On examining her today, she looks well, pale, cachectic, but no jaundice, cyanosis, or thyromegaly. No jugular venous distension. No limb edema. VITAL SIGNS: Heart rate was 107, blood pressure was 170/75, temperature was 99, respiratory rate was 22 and oxygen saturation was 94% on 2 liters of oxygen. HEAD, EYES, EARS, NOSE AND THROAT: Normocephalic, atraumatic. NECK: Supple. HEART: Showed normal first and second heart sounds. No gallop or murmur. CHEST: Shows central trachea, equal bilateral expansion, air entry anteriorly. Patient has crepitation more so on the right posteriorly. I could not appreciate any rhonchi. ABDOMEN: Scaphoid, soft, nontender. NEUROLOGIC: She is lethargic, nonverbal and apparently mostly bed bound. LABORATORY DATA: On arrival showed a white cell count of 13,400, hemoglobin 13, hematocrit 40, MCV 90 and platelet count of 292,000. Her chemistry showed a serum sodium 144, potassium 3.9, chloride 107, bicarbonate 23, anion gap of 14, BUN of 34, creatinine 1.5, estimated GFR was 33 mL per minute. Her glucose 167. Lactic acid was high at 4.4. Her calcium was 9.1, magnesium was 1.8. Total bilirubin, AST, ALT, alkaline phosphatase were normal. Her troponin I was less than 0.017. B-natriuretic peptide was 2979. Total protein was 6.3, albumin was 3.1. Her chest x-ray showed the patient has patchy right lower lobe atelectasis and/or infiltrate. CT scan of the head showed there was generalized parenchymal atrophy. Prominence of the ventricular system is again seen, unchanged areas of decreased attenuation are seen within the periventricular and subcortical white matter of both cerebral hemispheres consistent with areas of small vessel ischemic disease, no acute parenchymal abnormality seen. No extraaxial fluid collection is noted. No skull fracture is seen. ASSESSMENT AND PLAN: The patient was admitted with healthcare-associated pneumonia. She will be started on IV vancomycin as well as meropenem as per pharmacy recommendation. She is very lethargic and nonverbal. We will probably ask the speech therapy to evaluate for swallowing. We will monitor her labs closely and adjust medication accordingly. FABIAN ROTHMAN MD DR: ZEINA/nickolas JOB#: [id number] / [id number]
[2018-12-02 19:15] VITALS: BP 127/73
[2018-12-02] MEDS: LACTOBACILLUS RHAMNOSUS GG 1 CAPSULE. PO SCH (20:07)
[2018-12-02 22:15] VITALS: BP 112/71
[2018-12-03] MEDS: MEROPENEM 500 MG in IV NORMAL SALINE 50ML 50 ML IV SCH ×2 (04:44→15:32)
[2018-12-03] MEDS: IPRATRPIUM/ALBUTEROL 0.5/2.5MG 3 ML NEBU. NEB SCH ×5 (05:02→20:32)
[2018-12-03 05:40] VITALS: BP 108/59
[2018-12-03 06:16] LABS: BASO % 0 % (0-3); EOS % 0 % (0-3); HEMATOCRIT 38.2 % (36.0-47.0); HEMOGLOBIN 12.4 g/dL (12.0-15.5); LYMPH # 0.3 x10^3/uL (1.0-4.8); LYMPH % 6 % (24-48); MEAN CORPUSCULAR HEMOGLOBIN 29 pg (25-35); MEAN CORPUSCULAR HGB CONC 32 g/dL (31-37); MEAN CORPUSCULAR VOLUME 90 fL (79-100); MONO # 0.4 x10^3/uL (0.0-1.1); MONO % 7 % (0-9); NEUT # 4.7 x10^3uL (1.8-7.7); NEUT % 87 % (31-73); PLATELET COUNT 221 x10^3/uL (140-400); RED BLOOD COUNT 4.24 x10^6/uL (3.50-5.40); RED CELL DISTRIBUTION WIDTH 15.1 % (11.5-14.5); WHITE BLOOD COUNT 5.4 x10^3/uL (4.0-11.0)
[2018-12-03 06:18] LABS: CALCIUM 8.3 mg/dL (8.5-10.1); CREATININE 1.6 mg/dL (0.6-1.0); GFR 30.7; POTASSIUM 3.9 mmol/L (3.5-5.1)
[2018-12-03] MEDS: LACTOBACILLUS RHAMNOSUS GG 1 CAPSULE. PO SCH ×2 (09:00→20:06)
[2018-12-03 10:32] VITALS: BP 138/81
[2018-12-03 14:46] VITALS: BP 114/66
[2018-12-03] MEDS ORDERED: IV DEXTROSE 5% - 0.9 % NACL 1,000 ML IV SCH (16:15)
[2018-12-03] MEDS: IV DEXTROSE 5% 1,000 ML IV SCH (16:29)
[2018-12-03 21:40] VITALS: BP 121/85
[2018-12-04 00:25] VITALS: BP 138/68
--- NOTE | 2018-12-04 01:22 | PN ---
DATE: 12/03/2018 SUBJECTIVE: The patient is resting slightly propped up in bed, in no apparent distress. She is definitely more awake, alert, and responsive at times, although at times, she just stares. We could not get any specific answers from her. PHYSICAL EXAMINATION: GENERAL: When I examined her, she looked pale, cachectic, but no jaundice, cyanosis, or thyromegaly. No jugular venous distension. No limb edema. VITAL SIGNS: Her heart rate was 112, blood pressure was 114/66, temperature was 97.9, respiratory rate was 24, and oxygen saturation was 94% on 9 liters of oxygen. HEAD, EYES, EARS, NOSE AND THROAT: Showed normocephalic, atraumatic. NECK: Supple. HEART: Showed normal first and second heart sounds. No gallop, rub or murmur. CHEST: Shows central trachea, equal bilateral expansion, air entry, vesicular sounds with crepitation mostly on the right side posteriorly. I could not appreciate any rhonchi. ABDOMEN: Distended, soft, nontender. No guarding or rigidity. No organomegaly. All hernial orifices intact. Bowel sounds normal. NEUROLOGIC: She is definitely more awake, alert, opens her eyes, tracks, and mouthed some words, although her answers are inconsistent. All her cranial nerves intact. She moves upper extremities to much good extent than her lower extremity. Her intake was 1250, no output was recorded. LABORATORY DATA: Her lab work this morning showed her white cell count is down to 5400, hemoglobin 12.4, hematocrit 38, MCV 90 and platelet count of 221,000. Her chemistry showed serum sodium of 48, potassium 3.9, chloride 113, bicarbonate 23, anion gap of 12, BUN 42, creatinine 1.6. Her glucose was 129, calcium was 8.3. ASSESSMENT: 1. Healthcare-associated pneumonia for which she is now on vancomycin and meropenem as the patient is allergic to PENICILLIN. 2. She has right lower lobe infiltrate and therefore, we will arrange for her to be evaluated by the speech therapist and in fact she is on a dysphagia 1 with nectar thickened liquid. OTHER MEDICAL PROBLEMS: Include: 1. Chronic obstructive pulmonary disease. 2. Iron deficiency anemia, chronic pain syndrome, chronic maxillary sinusitis, and she has age-related cognitive decline, marked muscle wasting and weakness, difficulty walking. She has also hypernatremia. PLAN: My plan is to start her on D5W at 50 mL per hour. Meanwhile, continue with IV antibiotic. Continue with physical and occupational therapy. FABIAN ROTHMAN MD DR: ZEINA/nickolas JOB#: [id number] / [id number]
[2018-12-04] MEDS: MEROPENEM 500 MG in IV NORMAL SALINE 50ML 50 ML IV SCH ×2 (04:04→16:37)
[2018-12-04 05:25] VITALS: BP 137/76
[2018-12-04] MEDS: IPRATRPIUM/ALBUTEROL 0.5/2.5MG 3 ML NEBU. NEB SCH ×4 (05:34→19:49)
[2018-12-04] MEDS: IV DEXTROSE 5% 1,000 ML IV SCH (06:10)
[2018-12-04 06:31] LABS: CALCIUM 8.9 mg/dL (8.5-10.1); CREATININE 1.4 mg/dL (0.6-1.0); GFR 35.8; POTASSIUM 3.2 mmol/L (3.5-5.1)
[2018-12-04] MEDS: LACTOBACILLUS RHAMNOSUS GG 1 CAPSULE. PO SCH ×2 (08:44→21:00)
[2018-12-04] MEDS ORDERED: VANCOMYCIN 750 MG in IV NORMAL SALINE 250ML 250 ML IV SCH (11:00)
[2018-12-04 11:29] VITALS: BP 98/54
--- NOTE | 2018-12-04 11:35 | PDOC ---
SUBJECTIVE: CC: Altered mentation Pleasantly confused Slumped over in chair. Sister and DPOA not in room. OBJECTIVE: Problems: Problems Medical Problems: (1) Facility-acquired pneumonia Status: Acute HEENT: PERRLA Neck: supple, no bruits Lungs: shallow respirations, diminished breath sounds bases CV RRR Abd: soft, no guarding nor rebound tenderness Ext: Right sided weakness Neuro: confused, Right hemiparesis. Expressive aphasia Vital Signs/I&O: Vital Signs Date Time Temp Pulse Resp B/P (MAP) Pulse Ox O2 Delivery O2 Flow Rate FiO2 12/04/18 09:24 96 Venturi Mask 15.0 12/04/18 05:25 98.6 94 18 137/76 (96) I & O 12/03/18 12/03/18 12/04/18 15:00 23:00 07:00 Intake Total 120 ml 828 ml 1024 ml Balance 120 ml 828 ml 1024 ml Labs: Laboratory Tests Test 12/04/18 06:17 Sodium Level 146 mmol/L (136-145) H Potassium Level 3.2 mmol/L (3.5-5.1) L Chloride Level 110 mmol/L (98-107) H Carbon Dioxide Level 25 mmol/L (21-32) Anion Gap 11 (6-14) Blood Urea Nitrogen 43 mg/dL (7-20) H Creatinine 1.4 mg/dL (0.6-1.0) H Estimated GFR (Cockcroft-Gault) 35.8 Glucose Level 138 mg/dL (70-99) H Calcium Level 8.9 mg/dL (8.5-10.1) ASSESSMENT: NH acquired pneumonia Dementia,multi infarct Altered Mentation, Dehydration 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 GALLITO BOLAND MD Dec 04, 2018 11:35
[2018-12-04 15:00] VITALS: BP 122/71
[2018-12-04 19:39] VITALS: BP 138/75
[2018-12-04 23:17] VITALS: BP 126/57
[2018-12-05] MEDS: MEROPENEM 500 MG in IV NORMAL SALINE 50ML 50 ML IV SCH ×2 (04:18→16:11)
[2018-12-05] MEDS: IPRATRPIUM/ALBUTEROL 0.5/2.5MG 3 ML NEBU. NEB SCH ×4 (04:44→19:51)
[2018-12-05 06:23] VITALS: BP 147/75
[2018-12-05] MEDS: LACTOBACILLUS RHAMNOSUS GG 1 CAPSULE. PO SCH ×2 (09:00→21:12)
[2018-12-05 09:46] LABS: ALBUMIN 1.7 g/dL (3.4-5.0); ALBUMIN/GLOBULIN RATIO 0.4 (1.0-1.7); CALCIUM 9.2 mg/dL (8.5-10.1); CREATININE 1.1 mg/dL (0.6-1.0); GFR 47.3; POTASSIUM 3.5 mmol/L (3.5-5.1); TOTAL BILIRUBIN 0.3 mg/dL (0.2-1.0)
[2018-12-05] MEDS: POTASSIUM CL 20MEQ IN D5W 1,000 ML IV SCH (11:42)
--- NOTE | 2018-12-05 11:42 | RAD ---
CHEST AP ONLY Clinical indications: Pneumonia. Follow-up study. COMPARISON: December 02, 2018. Findings: Increasing right lung base infiltrate is seen along with an increase in right-sided pleural effusion. Increase in left lung base infiltrate is seen and there is a new small left-sided pleural effusion. Increase in bilateral bronchitis is evident. No pneumothorax is seen. Heart size and mediastinum are stable. IMPRESSION: Increase in bibasilar consolidative lung infiltrates with associated pleural effusions. Increase in bilateral bronchitis. Electronically signed by: Alejo Gaming MD (12/05/2018 11:40 AM) [facility]
[2018-12-05 11:57] VITALS: BP 131/74
--- NOTE | 2018-12-05 13:43 | PN ---
DATE: 12/05/2018 ATTENDING PHYSICIAN: Dr. Jha. SUBJECTIVE: Much more alert today. She is responsive. A sister and durable power of powerhouse attendant is at bedside. She denies any pain, shortness of breath or congestion. She is still in bed and requires 1:1 assist in transfer. OBJECTIVE FINDINGS: VITAL SIGNS: Her blood pressure today is 147/75, her pulse is 93 and regular. She is afebrile. HEENT: The head is without trauma. The pupils are reactive. The sclerae are nonicteric. The oropharynx is clear. NECK: Supple. There are no bruits identified. CARDIOVASCULAR: Showed regular heart tones. No obvious gallops. Peripheral pulses palpable and full. LUNGS: Diminished breath sounds at bases. ABDOMEN: Soft. There is no guarding or rebound tenderness. Bowel sounds were hypoactive. EXTREMITIES: Still showed some right-sided weakness. NEUROLOGIC: Less confused. She has some expressive aphasia and some right hemiparesis. LABORATORY DATA: A followup chest x-ray and chem-B has been ordered and is still pending at this time. ASSESSMENT: 1. An 83-year-old longterm resident with aspiration pneumonia. 2. Altered mentation, improving. 3. Dehydration, rehydrated. 4. Probable old left hemispheric stroke with hemiparesis and aphasia. 5. Generalized debilitation. 6. Aspiration as noted. PLAN: 1. Continue meropenem as ordered. 2. Speech recommendation regarding dietary recommendations will be followed and sent to [facility] at the time of discharge. 3. Dietary vigilance. 4. I did visit with her sister Ms. Liu who is her only relative here and durable power of powerhouse attendant. We did ascertain that she is a DNR per advanced directive. 5. Follow up x-ray and discharge planning for early next week. ADDENDUM The patient's chemistry came back today. Her sodium is slowly climbing to 150 mEq/liter. Her potassium is up to 3.5 mEq. The hypernatremia is due to free water deficit; therefore, I have ordered D5W with 40 mEq of KCl at 75 mL an hour, also oral supplemental potassium replacement with serial chemistries. We will see what her chemistry looks like tomorrow. GALLITO BOLAND MD DR: FLIP/nickolas JOB#: [id number] / [id number]
[2018-12-05 15:30] VITALS: BP 127/74
[2018-12-05 20:50] VITALS: BP 163/84
[2018-12-05] MEDS: POTASSIUM CHLORIDE 20 MEQ TABLET.ER. PO SCH (21:00)
[2018-12-05 23:09] VITALS: BP 145/77
[2018-12-06] MEDS: POTASSIUM CL 20MEQ IN D5W 1,000 ML IV SCH (01:23)
[2018-12-06] MEDS: MEROPENEM 500 MG in IV NORMAL SALINE 50ML 50 ML IV SCH ×2 (04:08→16:07)
[2018-12-06] MEDS: IPRATRPIUM/ALBUTEROL 0.5/2.5MG 3 ML NEBU. NEB SCH ×4 (04:55→19:51)
[2018-12-06 06:54] VITALS: BP 159/62
[2018-12-06] MEDS: POTASSIUM CHLORIDE 20 MEQ TABLET.ER. PO SCH ×2 (09:00→20:02)
[2018-12-06] MEDS: LACTOBACILLUS RHAMNOSUS GG 1 CAPSULE. PO SCH ×2 (09:00→20:02)
[2018-12-06 09:21] LABS: CALCIUM 8.8 mg/dL (8.5-10.1); CREATININE 0.9 mg/dL (0.6-1.0); GFR 59.7; POTASSIUM 3.4 mmol/L (3.5-5.1)
[2018-12-06 11:27] VITALS: BP 149/79
--- NOTE | 2018-12-06 12:28 | PN ---
DATE: 12/06/2018 ATTENDING PHYSICIAN: Dr. Jha. SUBJECTIVE: The patient is fairly alert today. Sister is not in the room. She has supplemental oxygen on. She is still very weak and bedridden and requires quite a bit of assistance in transfer. She is able to eat part of her breakfast independently. Her appetite is not great. OBJECTIVE FINDINGS: VITAL SIGNS: Her blood pressure today is 159/62, her temperature is 98.5 degrees Fahrenheit, her pulse is 95 and regular. She has oxygen saturation 92% on 3 liters of supplemental oxygen. Her chemistry panel was pending. HEENT: The head is without trauma. The pupils are reactive. Sclerae is nonicteric. The oropharynx is clear. NECK: Supple. No bruits are identified. LUNGS: Show shallow respiration. Again, there are rhonchi and diminished breath sounds at both bases, more prominent on the right side. CARDIOVASCULAR: Showed distant heart tones. No obvious gallops. Peripheral pulses are palpable and full. ABDOMEN: Soft, nontender to palpation. Bowel sounds are hypoactive. EXTREMITIES: Showed right-sided weakness. NEUROLOGIC FINDINGS: Speech is slow and less confused. She still has expressive aphasia, some right-sided hemiparesis that she is not entirely aware of place and time. The followup chest x-ray done yesterday showed bibasilar infiltrates or consolidation. There is fluid in the fissure and small pleural effusions bilaterally. ASSESSMENT: 1. An 83-year-old female, long term resident with aspiration pneumonia. 2. Altered mentation, resolved. 3. Dehydration, rehydrated. 4. 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 5. Generalized debilitation. 6. Hypernatremia due to free water deficit. 7. Aspiration. 8. Small pleural effusion related to pneumonia. PLAN: 1. Continue antibiotics as ordered. 2. I ordered D5W yesterday to help with her chemistries. It is still pending at this time. For now, I will stop the IV fluids because of her pleural effusion. 3. Supplemental oxygen. 4. Followup x-ray later next week. 5. Sister is not here to discuss disposition. She may benefit with palliative care at some time. She is still tenuous and not ready to go back to the long term. She is not ready for discharge at this time. GALLITO BOLAND MD DR: FLIP/nickolas JOB#: [id number] / [id number] FABIAN Ying MD
[2018-12-06 15:00] VITALS: BP 154/73
[2018-12-06 19:34] VITALS: BP 148/75
[2018-12-07] MEDS: MEROPENEM 500 MG in IV NORMAL SALINE 50ML 50 ML IV SCH ×3 (04:05→20:43)
[2018-12-07] MEDS: IPRATRPIUM/ALBUTEROL 0.5/2.5MG 3 ML NEBU. NEB SCH ×4 (05:01→20:18)
[2018-12-07 05:41] VITALS: BP 149/78
[2018-12-07] MEDS: POTASSIUM CHLORIDE 20 MEQ TABLET.ER. PO SCH ×2 (08:35→20:43)
[2018-12-07] MEDS: LACTOBACILLUS RHAMNOSUS GG 1 CAPSULE. PO SCH ×2 (08:35→20:43)
[2018-12-07 09:14] LABS: CALCIUM 8.8 mg/dL (8.5-10.1); CREATININE 0.8 mg/dL (0.6-1.0); GFR 68.3; POTASSIUM 3.8 mmol/L (3.5-5.1)
[2018-12-07 10:51] VITALS: BP 127/67
--- NOTE | 2018-12-07 11:46 | PN ---
DATE: 12/07/2018 SUBJECTIVE: The patient is pleasantly confused. Sister is not in the room. She has supplemental oxygen on. She remains bedridden and requires quite a bit of assistance in transfer. She is unclear as to her current situation. She eats poorly, but independently. Her appetite is not good. She denied any pain. There is no obvious respiratory distress. OBJECTIVE: VITAL SIGNS: Today showed a temperature of 99.1 degrees axillary, blood pressure was 149/78 mmHg, pulse 95 and regular, oxygen saturation 89% on 4 liters of oxygen by nasal cannula. HEENT: Head is without trauma. Pupils are reactive. The sclerae are nonicteric. The oropharynx is clear. NECK: Supple. There are no bruits identified. LUNGS: She still has shallow respirations. There are scattered rhonchi. Diminished breath sounds at both bases, more prominent on the right side. CARDIOVASCULAR: Distant heart tones. No obvious gallop. Peripheral pulses are palpable. ABDOMEN: Soft, scaphoid, nontender. Bowel sounds are hypoactive. EXTREMITIES: Showed some right-sided weakness. NEUROLOGIC: She remains confused. Speech is slow. She is responsive. She has some expressive aphasia and finding words. She has residual right-sided hemiparesis. The patient is not entirely aware of person, place, nor time. LABORATORY DATA: Chest x-ray from yesterday as noted. Follow up sodium showed improvement of her sodium to 145 mEq/L. ASSESSMENT: 1. An 83-year-old female, half-way resident with aspiration pneumonia. 2. Bilateral pleural effusions, moderate. 3. Altered mentation improved. 4. Dehydration, rehydrated. 5. 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 6. Generalized debilitation. 7. Hypernatremia due to free water deficit, improved. 8. Aspiration and benign bilateral pleural effusion. PLAN: 1. Continue antibiotics ordered. 2. Intravenous fluid has been stopped. 3. Diet as tolerated with recommendations from speech therapy. 4. Palliative care consultation at the time of discharge. 5. Tentative plans to return to medical half-way with hospice care tomorrow. GALLITO BOLAND MD DR: FLIP/nickolas JOB#: [id number] / [id number]
[2018-12-07 15:25] VITALS: BP 130/71
[2018-12-07 19:20] VITALS: BP 150/77
[2018-12-07 22:35] VITALS: BP 142/76
[2018-12-08] MEDS: MEROPENEM 500 MG in IV NORMAL SALINE 50ML 50 ML IV SCH (04:00)
[2018-12-08] MEDS: IPRATRPIUM/ALBUTEROL 0.5/2.5MG 3 ML NEBU. NEB SCH ×2 (05:14→10:41)
[2018-12-08 05:33] VITALS: BP 171/80
[2018-12-08 06:03] LABS: CALCIUM 8.3 mg/dL (8.5-10.1); CREATININE 0.8 mg/dL (0.6-1.0); GFR 68.3; POTASSIUM 4.3 mmol/L (3.5-5.1)
[2018-12-08] MEDS: LACTOBACILLUS RHAMNOSUS GG 1 CAPSULE. PO SCH (08:11)
[2018-12-08] MEDS: POTASSIUM CHLORIDE 20 MEQ TABLET.ER. PO SCH (08:11)
[2018-12-08] MEDS ORDERED: CEPH-264 PO (09:41)
[2018-12-08 10:25] VITALS: BP 155/77
--- NOTE | 2018-12-08 11:05 | DS ---
DATE OF DISCHARGE: 12/08/2018 ATTENDING PHYSICIANS: Dr. Jha and Dr. Boland. FINAL DISCHARGE DIAGNOSES: 1. Aspiration pneumonia. 2. Bilateral infiltrates at bases. 3. Small pleural effusion. 4. Altered mentation, improved. 5. Dehydration. 6. 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 7. Generalized debilitation. 8. Hypernatremia due to free water deficit, corrected. 9. Aspiration. HISTORY OF PRESENT ILLNESS: This is an 83-year-old female admitted from [facility]. She has aspirated. She had decreased mentation. Chest x-ray demonstrated bilateral infiltrates at both bases. She was admitted for further treatment and evaluation. PHYSICAL EXAMINATION: Please see the dictated note. PERTINENT LABORATORY AND X-RAY STUDIES: Initial chest x-ray showed bilateral infiltrates with small pleural effusions. Her hemoglobin was maintained at 12.4 g/dL with white count of 13,400. Chemistry panel showed improvement. Sodium did come down to 145 mEq, potassium 4.3 mEq, nonfasting blood sugar 126 mg/dL with creatinine of 0.8 mg/dL. COURSE IN THE HOSPITAL: The patient has multiple allergies to AMOXICILLIN, DOXYCYCLINE, CLINDAMYCIN and LEVAQUIN. She was started on meropenem. She received 7 full days of intravenous meropenem. The followup chest x-ray done on the fourth hospital day was lagging in the clinical response. We treated her accordingly. We were very judicious with IV hydration. She is a DNR per advanced directives. Speech therapy saw the patient and recommendations for dysphagia 1 diet was recommended. Palliative team were consulted on. On the seventh day, she was discharged back to [facility] for continued care. She remains a DNR per advanced directives. They will have palliative team see her at the care home. DISCHARGE MEDICATIONS: Include the following: We should recommend 7 more days of cephalexin 500 mg p.o. 3 times a day, albuterol as needed and Xanax p.r.n. agitation. For now, we held her Soma, Flomax and trazodone. PROGNOSIS: Quite guarded. I believe she is terminal. DISPOSITION: She was discharged from our hospital in stable condition with explicit instructions and followup care. GALLITO BOLAND MD DR: FLIP/nickolas JOB#: [id number] / [id number]
== END 2018-12-08 11:46 | disposition home or self-care (01) | DRG 871 ==
LOC: ER 09:21 → 1 SOUTH 10:43
PROVIDERS: ADMIT Internal Medicine; ATTEND Internal Medicine
DX: A41.9 Sepsis, unspecified organism (principal); J69.0 Pneumonitis due to inhalation of food and vomit; E87.0 Hyperosmolality and hypernatremia; I69.351 Hemiplegia and hemiparesis following cerebral infarction affecting right dominant side; F03.90 Unspecified dementia, unspecified severity, without behavioral disturbance, psychotic disturbance, mood disturbance, and anxiety; F17.210 Nicotine dependence, cigarettes, uncomplicated; G89.4 Chronic pain syndrome; J44.9 Chronic obstructive pulmonary disease, unspecified; J32.0 Chronic maxillary sinusitis; Y95 Nosocomial condition; E86.0 Dehydration; Z66 Do not resuscitate; R13.10 Dysphagia, unspecified; D50.9 Iron deficiency anemia, unspecified; I69.320 Aphasia following cerebral infarction; Z88.0 Allergy status to penicillin; Z98.42 Cataract extraction status, left eye; Z98.41 Cataract extraction status, right eye; Z82.3 Family history of stroke; Z74.01 Bed confinement status
CPT/HCPCS: 36415; 70450; 71045; 80048; 80053; 82140; 82803; 83605; 83735; 83880; 84484; 85007; 85025; 87040; 87641; 94640; 94760; 96365; 96368; J2185; J3370; J7040; J7042; J7050; J7620; 92610; 99285-25